=== PATIENT | female | born 1950 | race Caucasian/White ===

== ENCOUNTER 2017-01-20 12:49 | Emergency (ER) | payer MEDICARE, BC ==
[2017-01-20] MEDS ORDERED: Sodium Chloride 0.9% 10 ML Syringe FLUSH PRN (14:50)
[2017-01-20] MEDS ORDERED: Ondansetron 4 MG/2 ML SDV IVPUSH ONE (14:52)
[2017-01-20] MEDS ORDERED: fentaNYL 100 MCG/2 ML SDV IVPUSH ONE ×2 (14:52→16:07)
--- NOTE | 2017-01-20 14:55 | EDM.PDOC ---
ED HPI GI/ABDOMINAL - General Chief Complaint: Abdominal Pain Stated Complaint: STOMACH PAIN HEADACHE Time Seen by Provider: 01/20/17 14:45 Source: Reports: Patient, Family, RN notes reviewed History Limitations: Reports: No limitations - History of Present Illness INITIAL COMMENTS - FREE TEXT/NARRATIVE: 66-year-old female presents to the emergency department a complaint of abdominal pain she has a known history of diverticular disease has had a couple of bouts of diverticulitis. She is developed this pain over the last 24 hours is predominantly in the right lower quadrant she is nauseated still passing gas has not had any fevers - Related Data Allergies/ADRs: Allergies Allergy/AdvReac Type Severity Reaction Status Date / Time hydromorphone HCl AdvReac Intermediate Nausea Verified 01/20/17 14:37 [From Dilaudid] sumatriptan [From Imitrex] AdvReac Intermediate Anxiety Verified 01/20/17 14:37 sumatriptan succinate AdvReac Intermediate Anxiety Verified 01/20/17 14:37 [From Imitrex] ketoconazole AdvReac Nausea Verified 01/20/17 14:37 prednisone AdvReac Stomach Verified 01/20/17 14:37 Upset berries Allergy Rash Uncoded 07/03/16 22:47 chlorine Allergy Shortness Uncoded 07/03/16 22:47 of Breath dust Allergy Shortness Uncoded 07/03/16 22:47 of Breath grass Allergy Shortness Uncoded 07/03/16 22:47 of Breath mildew Allergy Shortness Uncoded 07/03/16 22:47 of Breath molds Allergy Shortness Uncoded 07/03/16 22:47 of Breath pollen Allergy Shortness Uncoded 07/03/16 22:47 of Breath trees Allergy Shortness Uncoded 07/03/16 22:47 of Breath steroids AdvReac Intermediate Vomiting Uncoded 07/03/16 22:47 Home Meds: Home Meds Chlorpheniramine Maleate [Allergy] 4 mg PO Q4H PRN 01/11/14 [History] Docusate Sodium [Colace] 100 mg PO QID PRN 01/11/14 [History] Hydrocodone/Acetaminophen [[place] 5-325] 1 - 2 tab PO Q4H PRN 01/11/14 [History] Loperamide HCl [Loperamide] 2 mg PO QID 01/11/14 [History] PARoxetine HCl [Paroxetine HCl] 20 mg PO DAILY 01/11/14 [History] atorvaSTATin [Lipitor] 40 mg PO DAILY 01/11/14 [History] cloNIDine [Catapres] 0.1 mg PO BID 01/11/14 [History] Omeprazole [Prilosec] 40 mg PO BEDTIME #30 capsule. 06/14/14 [Rx] Cholecalciferol (Vitamin D3) [Vitamin D3] 1,000 unit PO BID 12/03/14 [History] Benzonatate 100 mg PO TID PRN 03/18/16 [History] tiZANidine [Zanaflex] 6 mg PO BEDTIME 03/18/16 [History] Past Medical History HEENT History: Reports: Other (see below) Other HEENT History: spasms l eye phantom tooth pain upper denture root canals 20 plus Cardiovascular History: Reports: Blood clots/VTE/DVT, High cholesterol, Hypertension Gastrointestinal History: Reports: Cholelithiasis, Diverticulosis, GERD [employer]ACHINE History: Reports: Musculoskeletal History: Reports: Fracture, Osteoporosis, Other (see below) Other Musculoskeletal History: bursitis tendinitis r shoulder r knee pain l foot torn tendons and ligements torticollis chronic neck pain occipital neuralgia sacrolicicm joint pain r and l plantar fascitis l foot metarsal fxr foot tremors Neurological History: Reports: Migraines Psychiatric History: Reports: Anxiety, Depression, PTSD Endocrine/Metabolic History: Reports: Osteopenia Hematologic History: Reports: Other (see below) Other Hematologic History: vitamin D deficiency Dermatologic History: Reports: Other (see below) Other Dermatologic History: frequent acne sores - Past Surgical History HEENT Surgical History: Reports: Tonsillectomy GI Surgical History: Reports: Cholecystectomy, Colonoscopy, Hernia repair/other Female Surgical History: Reports: Breast biopsy, Hysterectomy Musculoskeletal Surgical History: Reports: None Social & Family History - Tobacco Use Smoking Status *Q: Former Smoker Years of Tobacco use: 30 Used Tobacco, but Quit: Yes Month Tobacco Last Used: oct Second Hand Smoke Exposure: No - Alcohol Use Days Per Week of Alcohol Use: 0 - Recreational Drug Use Recreational Drug Use: No - Living Situation & Occupation Living situation: Reports: with spouse Occupation: unemployed (lives in [facility]) ED ROS GENERAL - Review of Systems Review Of Systems: See Below Constitutional: Denies: fever, chills HEENT: Reports: No symptoms Respiratory: Reports: No Symptoms Cardiovascular: Reports: Dyspnea on exertion GI/Abdominal: Reports: Abdominal pain, Flatus, Nausea. Denies: Vomiting : Reports: no symptoms Musculoskeletal: Reports: no symptoms Skin: Reports: no symptoms Neurological: Reports: No Symptoms ED EXAM, GI/ABD - Physical Exam Exam: See Below Exam Limited By: No limitations General Appearance: alert, WD/WN, no apparent distress Head: atraumatic, normocephalic Neck: normal inspection, supple, non-tender, full range of motion Respiratory/Chest: no respiratory distress, lungs clear, normal breath sounds, no accessory muscle use Cardiovascular: regular rate, rhythm, no murmur GI/Abdominal: normal bowel sounds, soft, no organomegaly, no distention, tenderness (Right lower corner and) Extremities: non-tender, no pedal edema Neurological: alert, oriented Skin Exam: Warm, Dry Course - Vital Signs Last Recorded V/S: Last Vital Signs Temp 99.8 F 01/20/17 14:34 Pulse 99 01/20/17 16:00 Resp 18 01/20/17 16:00 BP 111/64 01/20/17 16:00 Pulse Ox 98 01/20/17 16:00 - Orders/Labs/Meds Orders: Active Orders 24 hr Category Date Time Status Peripheral IV Care [RC] . DIRECTED Care 01/20/17 14:50 Active Abdomen Pelvis w Cont [CT] Urgent Exams 01/20/17 14:50 Taken Iopamidol [Isovue-300 (61%)] Med 01/20/17 15:19 Active 100 ml IV . DIRECTED PRN Sodium Chloride 0.9% [Normal Saline] 1,000 ml Med 01/20/17 15:00 Active IV ASDIRECTED Sodium Chloride 0.9% [Normal Saline] 70 ml Med 01/20/17 15:30 Active IV ASDIRECTED Sodium Chloride 0.9% [Saline Flush] Med 01/20/17 14:50 Active 10 ml FLUSH ASDIRECTED PRN Sodium Chloride 0.9% [Saline Flush] Med 01/20/17 15:30 Active 10 ml FLUSH ONETIME Peripheral IV Insertion Adult [OM.PC] Urgent Oth 01/20/17 14:50 Ordered Medication Orders Sodium Chloride (Normal Saline) 1,000 mls @ 500 mls/hr IV ASDIRECTED RYAN Last Admin: 01/20/17 15:25 Dose: 500 mls/hr Sodium Chloride (Normal Saline) 70 mls @ 3 mls/sec IV ASDIRECTED RYAN Last Admin: 01/20/17 15:31 Dose: 3 mls/sec Iopamidol (Isovue-300 (61%)) 100 ml IV . DIRECTED PRN PRN Reason: RADIOLOGY EXAM Stop: 01/21/17 15:20 Last Admin: 01/20/17 15:31 Dose: 100 ml Sodium Chloride (Saline Flush) 10 ml FLUSH ASDIRECTED PRN PRN Reason: Keep Vein Open Last Admin: 01/20/17 15:24 Dose: 10 ml Sodium Chloride (Saline Flush) 10 ml FLUSH ONETIME RYAN Last Admin: 01/20/17 15:31 Dose: 10 ml Labs: Laboratory Tests 01/20/17 01/20/17 01/20/17 Range/Units 15:01 15:01 15:01 WBC 7.3 (4.5-11.0) K/uL RBC 4.68 (3.30-5.50) M/uL Hgb 13.3 (12.0-15.0) g/dL Hct 39.3 (36.0-48.0) % MCV 84 (80-98) fL MCH 28 (27-31) pg MCHC 34 (32-36) % Plt Count 296 (150-400) K/uL Neut % (Auto) 69 H (36-66) % Lymph % (Auto) 20 L (24-44) % [place] % (Auto) 7 H (2-6) % Eos % (Auto) 2 (2-4) % Baso % (Auto) 2 H (0-1) % Sodium 141 (140-148) mmol/L Potassium 3.9 (3.6-5.2) mmol/L Chloride 104 (100-108) mmol/L Carbon Dioxide 25 (21-32) mmol/L Anion Gap 12.5 (5.0-14.0) mmol/L BUN 8 (7-18) mg/dL Creatinine 0.8 (0.6-1.0) mg/dL Est Cr Clr Drug Dosing 60.54 mL/min Estimated GFR (MDRD) > 60 (>60) Glucose 117 H (74-106) mg/dL Lactic Acid 2.2 H (0.4-2.0) mmol/L Calcium 8.9 (8.5-10.1) mg/dL Total Bilirubin 0.4 (0.2-1.0) mg/dL AST 22 (15-37) U/L ALT 24 (12-78) U/L Alkaline Phosphatase 95 (46-116) U/L Troponin I < 0.017 (0.000-0.056) ng/mL Total Protein 7.2 (6.4-8.2) g/dL Albumin 4.0 (3.4-5.0) g/dL Globulin 3.2 (2.3-3.5) g/dL Albumin/Globulin Ratio 1.3 (1.2-2.2) Lipase 174 (73-393) U/L Urine Color Urine Appearance Urine pH (4.5-8.0) Ur Specific [place] (1.008-1.030) Urine Protein (NEGATIVE) mg/dL Urine Glucose (UA) (NEGATIVE) mg/dL Urine Ketones (NEGATIVE) mg/dL Urine Occult Blood (NEGATIVE) Urine Nitrite (NEGATIVE) Urine Bilirubin (NEGATIVE) Urine Urobilinogen (NORMAL) mg/dL Ur Leukocyte Esterase (NEGATIVE) Urine RBC (0-5) Urine WBC (0-5) Ur Epithelial Cells Amorphous Sediment Urine Bacteria Urine Mucus 01/20/17 Range/Units 15:48 WBC (4.5-11.0) K/uL RBC (3.30-5.50) M/uL Hgb (12.0-15.0) g/dL Hct (36.0-48.0) % MCV (80-98) fL MCH (27-31) pg MCHC (32-36) % Plt Count (150-400) K/uL Neut % (Auto) (36-66) % Lymph % (Auto) (24-44) % [place] % (Auto) (2-6) % Eos % (Auto) (2-4) % Baso % (Auto) (0-1) % Sodium (140-148) mmol/L Potassium (3.6-5.2) mmol/L Chloride (100-108) mmol/L Carbon Dioxide (21-32) mmol/L Anion Gap (5.0-14.0) mmol/L BUN (7-18) mg/dL Creatinine (0.6-1.0) mg/dL Est Cr Clr Drug Dosing mL/min Estimated GFR (MDRD) (>60) Glucose (74-106) mg/dL Lactic Acid (0.4-2.0) mmol/L Calcium (8.5-10.1) mg/dL Total Bilirubin (0.2-1.0) mg/dL AST (15-37) U/L ALT (12-78) U/L Alkaline Phosphatase (46-116) U/L Troponin I (0.000-0.056) ng/mL Total Protein (6.4-8.2) g/dL Albumin (3.4-5.0) g/dL Globulin (2.3-3.5) g/dL Albumin/Globulin Ratio (1.2-2.2) Lipase (73-393) U/L Urine Color Yellow Urine Appearance Clear Urine pH 8.0 (4.5-8.0) Ur Specific [place] 1.015 (1.008-1.030) Urine Protein Negative (NEGATIVE) mg/dL Urine Glucose (UA) Normal (NEGATIVE) mg/dL Urine Ketones Negative (NEGATIVE) mg/dL Urine Occult Blood Negative (NEGATIVE) Urine Nitrite Negative (NEGATIVE) Urine Bilirubin Negative (NEGATIVE) Urine Urobilinogen Normal (NORMAL) mg/dL Ur Leukocyte Esterase Negative (NEGATIVE) Urine RBC 0-5 (0-5) Urine WBC Not seen (0-5) Ur Epithelial Cells Rare Amorphous Sediment Not seen Urine Bacteria Rare Urine Mucus Not seen Meds: Medications Generic Name Dose Route Start Last Admin Trade Name Freq PRN Reason Stop Dose Admin Sodium Chloride 1,000 mls @ 500 mls/hr 01/20/17 15:00 01/20/17 15:25 Normal Saline IV 500 mls/hr ASDIRECTED RYAN Administration Sodium Chloride 70 mls @ 3 mls/sec 01/20/17 15:30 01/20/17 15:31 Normal Saline IV 3 mls/sec ASDIRECTED RYAN Administration Iopamidol 100 ml 01/20/17 15:19 01/20/17 15:31 Isovue-300 (61%) IV 01/21/17 15:20 100 ml . DIRECTED PRN Administration RADIOLOGY EXAM Sodium Chloride 10 ml 01/20/17 14:50 01/20/17 15:24 Saline Flush FLUSH 10 ml ASDIRECTED PRN Administration Keep Vein Open Sodium Chloride 10 ml 01/20/17 15:30 01/20/17 15:31 Saline Flush FLUSH 10 ml ONETIME RYAN Administration Discontinued Medications Generic Name Dose Route Start Last Admin Trade Name Garryq PRN Reason Stop Dose Admin Fentanyl 50 mcg 01/20/17 14:52 01/20/17 15:22 Sublimaze IVPUSH 01/20/17 14:53 50 mcg ONETIME ONE Administration Fentanyl 50 mcg 01/20/17 16:07 01/20/17 16:23 Sublimaze IVPUSH 01/20/17 16:08 50 mcg ONETIME ONE Administration Ondansetron HCl 4 mg 01/20/17 14:52 01/20/17 15:22 Zofran IVPUSH 01/20/17 14:53 4 mg ONETIME ONE Administration Departure - Departure Time of Disposition: 17:26 Disposition: Home, Self-Care 01 Condition: good Clinical Impression: Abdominal pain Qualifiers: Abdominal location: right lower quadrant Qualified Code(s): R10.31 - Right lower quadrant pain Forms: ED Department Discharge Additional Instructions: Continued use hydrocodone as needed for pain control, Please followup with your primary care provider in 3-5 days if not better, please call return to the emergency department with worsening of symptoms. - My Orders Last 24 Hours: My Active Orders 01/20/17 14:50 Peripheral IV Care [RC] . DIRECTED Abdomen Pelvis w Cont [CT] Urgent Sodium Chloride 0.9% [Saline Flush] 10 ml FLUSH ASDIRECTED PRN Peripheral IV Insertion Adult [OM.PC] Urgent 01/20/17 15:00 Sodium Chloride 0.9% [Normal Saline] 1,000 ml IV ASDIRECTED 01/20/17 15:19 Iopamidol [Isovue-300 (61%)] 100 ml IV . DIRECTED PRN 01/20/17 15:30 Sodium Chloride 0.9% [Normal Saline] 70 ml IV ASDIRECTED Sodium Chloride 0.9% [Saline Flush] 10 ml FLUSH ONETIME - Assessment/Plan Last 24 Hours: My Active Orders 01/20/17 14:50 Peripheral IV Care [RC] . DIRECTED Abdomen Pelvis w Cont [CT] Urgent Sodium Chloride 0.9% [Saline Flush] 10 ml FLUSH ASDIRECTED PRN Peripheral IV Insertion Adult [OM.PC] Urgent 01/20/17 15:00 Sodium Chloride 0.9% [Normal Saline] 1,000 ml IV ASDIRECTED 01/20/17 15:19 Iopamidol [Isovue-300 (61%)] 100 ml IV . DIRECTED PRN 01/20/17 15:30 Sodium Chloride 0.9% [Normal Saline] 70 ml IV ASDIRECTED Sodium Chloride 0.9% [Saline Flush] 10 ml FLUSH ONETIME Plan: Assessment Acuity = acute Site and laterality = right lower quadrant abdominal pain Etiology = unclear etiology Manifestations = pain Location of injury = home Lab values = [CBC, CMP, urinalysis unremarkable CT scan shows no acute process Plan She had good resolution with her pain with fentanyl she does have hydrocodone at home plan is discharge home followup with primary care 2-5 days if no improvement Patient was in agreement with the plan all questions were answered, they were instructed to return to the emergency department or call for worsening symptoms. This note was dictated using [employer] voice recognition software please call with any questions.
[2017-01-20] MEDS ORDERED: Sodium Chloride 0.9% 1,000 ML IV SCH (15:00)
[2017-01-20] MEDS ORDERED: Iopamidol 612 MG/ML 100 ML Bottle IV PRN (15:19)
[2017-01-20] MEDS ORDERED: Sodium Chloride 0.9% 10 ML Syringe FLUSH SCH (15:30)
[2017-01-20 16:04] VITALS: BP 111/64
== END 2017-01-20 17:50 | disposition home or self-care (01) ==
LOC: JP.ED 12:49
DX: R10.31 Right lower quadrant pain (principal); I10 Essential (primary) hypertension; E78.00 Pure hypercholesterolemia, unspecified; F41.9 Anxiety disorder, unspecified; F32.9 Major depressive disorder, single episode, unspecified; Z90.49 Acquired absence of other specified parts of digestive tract; Z86.718 Personal history of other venous thrombosis and embolism; Z90.710 Acquired absence of both cervix and uterus; Z98.890 Other specified postprocedural states; Z87.891 Personal history of nicotine dependence; Z79.899 Other long term (current) drug therapy; Z88.5 Allergy status to narcotic agent; Z88.8 Allergy status to other drugs, medicaments and biological substances; Z91.018 Allergy to other foods; Z91.048 Other nonmedicinal substance allergy status
CPT/HCPCS: 36415; 74177; 80053; 81001; 83605; 83690; 84484; 85025; 96361; 96374; 96375; 96376; 99284; J2405; J3010; J7030; J7040; J7050; Q9967

== ENCOUNTER 2022-12-09 14:26 | Emergency (ER) | payer MEDICARE, BC ==
[2022-12-09 15:18] VITALS: PULSE 78
[2022-12-09] MEDS ORDERED: Ondansetron 4 MG/2 ML SDV IVPUSH ONE (16:08)
[2022-12-09] MEDS ORDERED: Lactated Ringers 1,000 ML IV ONE ×2 (16:08→18:02)
[2022-12-09] MEDS ORDERED: Sodium Chloride 0.9% 10 ML Syringe FLUSH PRN (16:08)
[2022-12-09 16:43] LABS: ESTIMATED GFR 96 mL/min (>60)
[2022-12-09 16:55] VITALS: BP 134/81
[2022-12-09 17:19] LABS: CORONAVIRUS COVID-19 NAA NEGATIVE (NEGATIVE)
== END 2022-12-09 19:24 | disposition home or self-care (01) ==
LOC: JP.ED 14:26
DX: K52.9 Noninfective gastroenteritis and colitis, unspecified (principal); E78.00 Pure hypercholesterolemia, unspecified; I10 Essential (primary) hypertension; K21.9 Gastro-esophageal reflux disease without esophagitis; Z88.5 Allergy status to narcotic agent; Z88.8 Allergy status to other drugs, medicaments and biological substances; Z91.018 Allergy to other foods; Z91.048 Other nonmedicinal substance allergy status; Z79.899 Other long term (current) drug therapy; Z20.822 Contact with and (suspected) exposure to COVID-19
CPT/HCPCS: 0241U; 36415; 80053; 81001; 83605; 83690; 85025; 96361; 96374; 99284; J2405; J3490; J7120